=== PATIENT | male | born 1940 | race Caucasian/White ===

== ENCOUNTER → 2017-08-24 | Outpatient (CLI) | payer BC ==
[~2017-08-24] MED LIST: ALL100 PO; AMLO2.5T PO; ATEN50TA8 PO; MULT-506 PO; PRAV20TA PO; VALS40TA2 PO; WARF2TAB8 PO; WARF4TAB8 PO
--- NOTE | 2017-08-24 16:40 | DIAGNOSTIC IMAGING REPORT ---
CHEST 2 VIEWS ROUTINE CLINICAL HISTORY: CHRONIC COUGH COMPARISON STUDY: 02/05/2015 FINDINGS: The cardiac and mediastinal contours are normal. There is no evidence of focal pulmonary consolidation. There is no evidence of failure. No pleural effusions are visualized.[ Increased markings at the left lung base remain similar to the prior study and are likely secondary to a combination of fat pad and atelectasis/scarring. IMPRESSION: Stable left basilar atelectasis/scarring. No acute findings. Electronically signed by: Ray Silver M.D. 08/24/2017 4:39 PM Dictated Date/Time: 08/24/2017 4:38 PM
== END | disposition home or self-care (01) ==
LOC: C.RAD 16:17
PROVIDERS: ATTEND Family Medicine
DX: R05 Cough (principal); R91.8 Other nonspecific abnormal finding of lung field

== ENCOUNTER → 2017-08-24 | Outpatient (CLI) | payer BC ==
--- NOTE | 2017-08-25 13:51 | PULMONARY FUNCTION TEST ---
Spirometry is consistent with a mild obstructive pattern. Repeat study done following bronchodilators showed significant improvement in function with a 15% improvement in forced vital capacity and a 21% improvement in FEV1. 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 Advise clinical correlation.
== END | disposition home or self-care (01) ==
LOC: C.RC 14:17
PROVIDERS: ATTEND Family Medicine
DX: R05 Cough (principal)

== ENCOUNTER → 2018-03-18 | Outpatient (CLI) | payer OTHER ==
--- NOTE | 2018-03-18 13:10 | DIAGNOSTIC IMAGING REPORT ---
ABDOMINAL WALL ULTRASOUND CLINICAL HISTORY: L03.311 abdominal wall cellulitis COMPARISON STUDY: No previous studies for comparison. FINDINGS: At the point of clinical concern, within the right lower quadrant, there is a superficial 13 x 6 x 7 mm complex collection suspicious for an abscess. CT scanning could be obtained in follow-up for further delineation as deemed clinically appropriate. IMPRESSION: 1. Complex 13 x 6 x 7 mm superficial collection within the right lower quadrant, suspicious for an abscess. Electronically signed by: Ray Silver M.D. 03/18/2018 1:09 PM Dictated Date/Time: 03/18/2018 1:06 PM
== END ==
LOC: C.ULTRBC 12:07
PROVIDERS: ATTEND Surgery
DX: L03.311 Cellulitis of abdominal wall (principal)

== ENCOUNTER 2018-03-28 11:51 | Inpatient (IN) | payer OTHER ==
[~2018-03-28] VITALS: Ht 170.2 cm; Wt 113.0 kg
[2018-03-28 12:00] VITALS: O2SAT 97
[2018-03-28 12:06] VITALS: BP 132/82; PULSE 70; TEMP 36.8; BMI 39.0
--- NOTE | 2018-03-28 12:14 | History and Physical ---
History & Physical Date Mar 28, 2018. History of Present Illness The patient is a 77 year old male with complaints of a several week history of RLQ abdominal wall cellulitis. I have been treating him as an out-pt with limited success. US as an out-pt was primarily a cellulitis. he continues to have redness/warmth/discomfort. no drainage Past Medical/Surgical History Medical Problems: (1) Cellulitis, abdominal wall (2) History of prostate cancer (3) Hypertension Nos (4) Mixed Hyperlipidemia (5) Pulmonary emboli (6) Renal insufficiency Surgical Problems: (1) History of wisdom tooth extraction Additional History Hepatic Disease: No Endocrine Disorder: No Kidney Disease: No Hypertension: Yes Heart Disease: No Bleeding Tendencies: on coumadin Infectious Diseases: No Allergies Coded Allergies: No Known Allergies (Unverified , 04/17/13) Home Medications Scheduled Allopurinol (Zyloprim *), 100 MG PO DAILY Amlodipine (Norvasc), 10 MG PO DAILY Atenolol (Tenormin), 50 MG PO DAILY Multivitamin (Multivitamin), 2 TAB PO DAILY Pravastatin (Pravachol ), 40 MG PO DAILY Valsartan (Diovan), 80 MG PO DAILY Warfarin Sod (Jantoven), 6 MG PO WK Warfarin Sod (Jantoven), 4 MG PO 6XWK Physical Examination Skin: warm/dry Eyes: EOMI, sclerae normal Head: atraumatic Neck: supple, trachea midline Respiratory/Chest: no respiratory distress Abdomen / GI: + pertinent finding (+cellulitis on RLQ. mildly tender. +warm to touch. no drainage. no fluctuance. ) Neurologic/Psych: alert, oriented x 3 Diagnosis 1. abdominal wall cellulitis refractory to out-pt treatment Plan of Treatment will admit for IV antibiotics will re-check US to r/o underlying drainable fluid symptom control.
[2018-03-28] MEDS ORDERED: PIPERACILL/TAZOBAC CONSULT ACTIVE PRN (12:15)
[2018-03-28] MEDS ORDERED: ACETAMINOPHEN 500 MG TAB PO PRN (12:15)
[2018-03-28] MEDS ORDERED: PATIENT'S HEIGHT AND/OR WEIGHT NEEDED SCH (12:15)
[2018-03-28] MEDS ORDERED: ONDANSETRON INJ 2 MG/ML 2 ML VIAL IV PRN (12:15)
[2018-03-28] MEDS ORDERED: HYDROCODONE/ACETAMIN 5/325MG TAB PO PRN ×2 (12:30)
[2018-03-28] MEDS ORDERED: PIPERACILL/TAZOBAC IV 4.5 GM in NSS 100 ML IV ONE (12:30)
[2018-03-28 12:58] LABS: BASO % 1.1 %; BASO ABS # 0.13 K/uL (0-0.2); EOS % 2.2 %; EOS ABS # 0.26 K/uL (0-0.5); HEMATOCRIT 31.9 % (42-52); HEMOGLOBIN 10.5 g/dL (14.0-18.0); IG# 0.33 K/uL (0.00-0.02); LYMPH % 16.3 %; LYMPH ABS # 1.96 K/uL (1.2-3.4); MEAN CELL VOLUME 91.7 fL (80-100); MEAN CORPUSCULAR HEMOGLOBIN 30.2 pg (25-34); MEAN CORPUSCULAR HGB CONC 32.9 g/dl (32-36); MEAN PLATELET VOLUME 8.5 fL (7.4-10.4); MONO % 8.2 %; MONO ABS # 0.98 K/uL (0.11-0.59); NEUT % 69.4 %; NEUT ABS # 8.33 K/uL (1.4-6.5); PLATELET COUNT 324 K/uL (130-400); RED CELL DISTRIBUTION WIDTH SD 46.6 fL (36.4-46.3); WHITE BLOOD COUNT 11.99 K/uL (4.8-10.8)
[2018-03-28 13:08] LABS: INR 3.5 (0.9-1.1)
[2018-03-28 13:19] LABS: CALCIUM 8.8 mg/dl (8.5-10.1); CREATININE 1.67 mg/dl (0.60-1.40); POTASSIUM 4.1 mmol/L (3.5-5.1)
--- NOTE | 2018-03-28 13:51 | DIAGNOSTIC IMAGING REPORT ---
ABDOMEN LIMITED (US) HISTORY: 77 years-old Male abdominal wall cellulitis acute swelling of the abdominal wall COMPARISON: Abdominal ultrasound 03/18/2018 TECHNIQUE: Multiple real-time sonographic images of the right lower quadrant subcutaneous tissues were obtained assessing grayscale appearance and color flow FINDINGS: Within the area of concern there is a complex fluid collection measuring 10.9 x 7.8 x 2.9 cm which appears to be multiloculated. Central fluid contains low-level echoes. There is increased through transmission. This has decreased in size from prior study when it measured 13 x 6 x 7 cm. IMPRESSION: Decreased size of the complex subcutaneous fluid collection of the abdominal right lower quadrant suggesting abscess, now measuring up to 10.9 cm. The above report was generated using voice recognition software. It may contain grammatical, syntax or spelling errors. Electronically signed by: Александр George M.D. 03/28/2018 1:50 PM Dictated Date/Time: 03/28/2018 1:48 PM
[2018-03-28 15:05] VITALS: BP 121/60; PULSE 59; TEMP 36.1; O2SAT 94
[2018-03-28] MEDS ORDERED: WARFARIN SOD 4 MG TAB PO SCH (16:00)
--- NOTE | 2018-03-28 17:06 | Anesthesiology Progress Note ---
Anesthesia Progress Note Date of Service Mar 28, 2018. Progress Notes The patient is scheduled for I and D of abdominal wall abscess tomorrow. 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 His INR was 3.5 today. I spoke to Dr. Somers who will order the patient to receive Vitamin K tonight. The patient was consented to MAC sedation with general anesthesia as backup. He was instructed to be NPO after midnight except for sips of water with pills.
[2018-03-28] MEDS ORDERED: PHYTONADIONE INJ 10 MG in SODIUM CHLORIDE 0.9% 50ML 50 ML IV ONE (17:15)
[2018-03-28] MEDS: PIPERACILL/TAZOBAC IV 4.5 GM in DEXTROSE 5% 100ML 100 ML IV SCH (18:49)
[2018-03-28] MEDS ORDERED: NURSING VERBAL MED ORDER ONE (19:00)
[2018-03-28] MEDS: AMLODIPINE BESYLATE 5 MG TAB PO SCH (20:59)
[2018-03-28] MEDS: MULTIVITAMIN TAB PO SCH (20:59)
[2018-03-28] MEDS: VALSARTAN 80 MG TAB PO SCH (20:59)
[2018-03-28] MEDS: ALLOPURINOL 100 MG TAB PO SCH (20:59)
[2018-03-28] MEDS: PRAVASTATIN SOD 20 MG TAB PO SCH (20:59)
[2018-03-28 22:50] VITALS: BP 105/69; PULSE 58; TEMP 36.8; O2SAT 95
[2018-03-29] VITALS (10 sets, daily range): BP systolic 105–158; BP diastolic 54–82; PULSE 51–63; TEMP 36.5–36.9; O2SAT 93–96
[2018-03-29] MEDS: PIPERACILL/TAZOBAC IV 4.5 GM in DEXTROSE 5% 100ML 100 ML IV SCH ×3 (01:25→17:34)
[2018-03-29 06:25] LABS: BASO % 1.1 %; BASO ABS # 0.14 K/uL (0-0.2); EOS % 2.8 %; EOS ABS # 0.34 K/uL (0-0.5); HEMATOCRIT 33.5 % (42-52); HEMOGLOBIN 10.9 g/dL (14.0-18.0); IG# 0.21 K/uL (0.00-0.02); LYMPH % 17.6 %; LYMPH ABS # 2.17 K/uL (1.2-3.4); MEAN CORPUSCULAR HEMOGLOBIN 29.9 pg (25-34); MEAN CORPUSCULAR HGB CONC 32.5 g/dl (32-36); MEAN PLATELET VOLUME 8.6 fL (7.4-10.4); MONO % 8.4 %; MONO ABS # 1.04 K/uL (0.11-0.59); NEUT % 68.4 %; NEUT ABS # 8.44 K/uL (1.4-6.5); PLATELET COUNT 315 K/uL (130-400); RED CELL DISTRIBUTION WIDTH CV 13.9 % (11.5-14.5); RED CELL DISTRIBUTION WIDTH SD 46.7 fL (36.4-46.3); WHITE BLOOD COUNT 12.34 K/uL (4.8-10.8)
[2018-03-29 06:41] LABS: INR 1.4 (0.9-1.1)
[2018-03-29 06:51] LABS: CALCIUM 8.9 mg/dl (8.5-10.1); CREATININE 2.14 mg/dl (0.60-1.40); POTASSIUM 4.2 mmol/L (3.5-5.1)
[2018-03-29] MEDS ORDERED: AMLODIPINE BESYLATE 5 MG TAB PO SCH (09:00)
[2018-03-29] MEDS ORDERED: VALSARTAN 80 MG TAB PO SCH (09:00)
[2018-03-29] MEDS ORDERED: MULTIVITAMIN TAB PO SCH (09:00)
[2018-03-29] MEDS ORDERED: ALLOPURINOL 100 MG TAB PO SCH (09:00)
[2018-03-29] MEDS ORDERED: PRAVASTATIN SOD 20 MG TAB PO SCH ×2 (09:00)
[2018-03-29] MEDS ORDERED: ONDANSETRON INJ 2 MG/ML 2 ML VIAL IV PRN (10:00)
[2018-03-29] MEDS ORDERED: FENTANYL CITRATE INJ 50 MCG/1 ML 2 ML VIAL IV PRN (10:00)
[2018-03-29] MEDS ORDERED: EpHEDrine SULFATE INJ 50 MG/ML AMP IV PRN (10:00)
[2018-03-29] MEDS ORDERED: LABETALOL HCL IV 5 MG/ML 20ML IV PRN (10:00)
[2018-03-29] MEDS ORDERED: HYDROmorphone INJ 2 MG/ML SYR/VIAL IV PRN (10:00)
[2018-03-29] MEDS ORDERED: MEPERIDINE HCL 25 MG/ML CARP IV PRN (10:00)
[2018-03-29] MEDS ORDERED: ATROPINE SULFATE 0.1 MG/ML 5ML SYR IV PRN (10:00)
[2018-03-29] MEDS ORDERED: FENTANYL CITRATE INJ 50 MCG/1 ML 2 ML VIAL ONE ×2 (11:36)
[2018-03-29] MEDS ORDERED: MIDAZOLAM HCL 1 MG/ML 2ML VIAL ONE (11:36)
--- NOTE | 2018-03-29 12:47 | History & Physical Bridge Note ---
H&P Re-Evaluation Bridge Note: I have examined the patient, reviewed the History & Physical and in the interval since the performance of the History & Physical I have noted the following changes of clinical significance: No changes noted
[2018-03-29] MEDS ORDERED: LIDOCAINE HCL 2% 2 ML VIAL (20MG/ML) ONE (13:08)
[2018-03-29] MEDS ORDERED: PROPOFOL IV EMULSION 10 MG/ML 20 ML VIAL ONE (13:08)
[2018-03-29] MEDS ORDERED: ONDANSETRON INJ 2 MG/ML 2 ML VIAL ONE (13:08)
[2018-03-29] MEDS ORDERED: DEXAMETHASONE SOD INJ 4 MG/ML VIAL ONE (13:08)
[2018-03-29] MEDS ORDERED: MoRPHine SULFATE 2 MG/ML CARP IV PRN (13:30)
--- NOTE | 2018-03-29 13:34 | [facility] Operative Report ---
Operative Report Operative Date March 29, 2018. Pre-Operative Diagnosis Abdominal wall abscess Post-Operative Diagnosis Same Procedure(s) Performed Inscion and drainage abdominal wall abscess Surgeon Dr Somers Software Build Engineer Surgeon(s) None Estimated Blood Loss 15ML Specimens Culture #1 abdominal wall abscess for gram stain, aerobic, anaerobic Anesthesia Type General Complication(s) none Description of Procedure After informed consent was obtained the patient was taken the operating room and placed in supine position. After successful placement of laryngeal mask airway the abdomen was sterilely prepped and draped in usual fashion. I made a horizontal incision directly over the indurated skin. I carried this down through the soft tissues electrocautery. We immediately encountered a rather large abscess with purulent fluid. Cultures were taken and sent for Gram stain culture and sensitivity. I finger fractionated the complex tissue and fluid. I used a Yankauer to clean out all the debris. We then thoroughly irrigated the wound and packed with half-inch iodoform packing. A sterile dressing was applied. The patient was awakened extubated and transferred to recovery in stable condition I attest to the content of the Intraoperative Record and any orders documented therein. Any exceptions are noted below.
--- NOTE | 2018-03-29 14:10 | Anesthesiology Progress Note ---
Anesthesia Post Op Note Date & Time March 29, 2018 at 14:10 Vital Signs Pain Intensity: 0 Vital Signs Past 12 Hours Date Time Temp Pulse Resp B/P (MAP) Pulse Ox O2 Delivery O2 Flow Rate FiO2 03/29/18 14:00 51 12 114/68 99 Oxymask 10 03/29/18 13:50 57 115/63 99 Oxymask 10 03/29/18 13:42 36.5 57 117/69 96 Oxymask 03/29/18 11:53 36.7 55 16 158/80 (106) 93 Room Air 03/29/18 09:19 95 Room Air 03/29/18 08:08 36.5 63 18 122/58 (79) 95 Room Air 03/29/18 07:57 Room Air Notes Mental Status: alert / awake / arousable, participated in evaluation Pt Amnestic to Procedure: Yes Nausea / Vomiting: adequately controlled Pain: adequately controlled Airway Patency, RR, SpO2: stable & adequate BP & HR: stable & adequate Hydration State: stable & adequate Anesthetic Complications: no major complications apparent
[2018-03-29] MEDS: MULTIVITAMIN TAB PO SCH (20:47)
[2018-03-29] MEDS: ALLOPURINOL 100 MG TAB PO SCH (20:47)
[2018-03-29] MEDS: AMLODIPINE BESYLATE 5 MG TAB PO SCH (20:48)
[2018-03-29] MEDS: PRAVASTATIN SOD 20 MG TAB PO SCH (20:48)
[2018-03-29] MEDS: VALSARTAN 80 MG TAB PO SCH (20:49)
[2018-03-30] MEDS: PIPERACILL/TAZOBAC IV 4.5 GM in DEXTROSE 5% 100ML 100 ML IV SCH ×2 (02:16→09:48)
[2018-03-30 03:00] VITALS: BP 125/78; PULSE 60; TEMP 36.5; O2SAT 93
[2018-03-30] MEDS ORDERED: AMOX875T PO (07:11)
--- NOTE | 2018-03-30 07:12 | Surgery Progress Note ---
Surgery Progress Note Date of Service March 30, 2018. Subjective Post OP Day: 1 + feeling well "best I've felt in a month"...no complaints. Objective Vital Signs: Date Time Temp Pulse Resp B/P (MAP) Pulse Ox O2 Delivery O2 Flow Rate FiO2 03/30/18 03:00 36.5 60 20 125/78 (94) 93 CPAP 03/29/18 23:40 CPAP 03/29/18 23:20 36.6 63 18 107/57 (74) 96 CPAP 03/29/18 20:12 36.9 63 18 134/75 (94) 94 Room Air 03/29/18 17:30 36.7 60 18 116/62 (80) 95 Room Air 03/29/18 16:40 36.7 58 18 105/54 (71) 94 Room Air 03/29/18 16:00 94 Room Air 03/29/18 15:04 36.7 51 18 134/82 (99) 94 Room Air 03/29/18 14:30 36.7 52 18 117/68 (84) 96 Nasal Cannula 2.0 03/29/18 14:30 Nasal Cannula 2.0 03/29/18 14:20 36.8 53 16 115/63 94 Room Air 03/29/18 14:10 53 16 119/62 94 Room Air 03/29/18 14:00 51 12 114/68 99 Oxymask 10 03/29/18 13:50 57 115/63 99 Oxymask 10 03/29/18 13:42 36.5 57 117/69 96 Oxymask 03/29/18 11:53 36.7 55 16 158/80 (106) 93 Room Air 03/29/18 09:19 95 Room Air 03/29/18 08:08 36.5 63 18 122/58 (79) 95 Room Air 03/29/18 07:57 Room Air General Appearance: no apparent distress Respiratory/Chest: no respiratory distress Abdomen: soft, + pertinent finding (dressing clean/dry) Incision(s): clean, dry Laboratory Results: Results Past 24 Hours Test 03/30/18 04:44 Range/Units Microbiology Results 03/29/18 Gram Stain, Received Pending 03/29/18 Bacterial Culture, Received Pending Assessment & Plan POD #1 doing much better. would like to go home ok for d/c on augmentin. cx's pending. will need soc services to arrange for home nursing for packing changes.
[2018-03-30 07:30] LABS: INR 1.2 (0.9-1.1)
[2018-03-30 07:45] VITALS: BP 158/90; PULSE 54; TEMP 36.4; O2SAT 96
[2018-03-30 09:24] VITALS: O2SAT 96
--- NOTE | 2018-03-30 09:57 | Discharge Instructions ---
Discharge Instructions Date of Service March 30, 2018. Admission Reason for Admission: Abd Wall Cellulitis (Not Open) Discharge Discharge Diagnosis / Problem: Abdominal Wall Cellulitis Discharge Goals Goal(s): Decrease discomfort, Improve function Activity Recommendations Activity Limitations: as noted below Lifting Limitations: no more than 10 pounds Exercise/Sports Limitations: until after follow-up appointment May Resume Sexual Activity: after follow-up appointment Shower/Bathe: no limitations Driving or Machine Use: no limitations . Instructions / Follow-Up Instructions / Follow-Up Please follow-up with Dr. Somesr in the [facility] located at [address] [place] [address] [place], [place] on 04/01/2018 at 10:00AM. If you are unable to make this appointment, please call our office at [phone]. Any questions or concerns, please call the General Surgery Clinic at [phone]. Current Hospital Diet Patient's current hospital diet: Regular Diet Discharge Diet Recommended Diet: Regular Diet Procedures Procedures Performed: Inscion and drainage abdominal wall abscess Pending Studies Studies pending at discharge: no Medical Emergencies . Who to Call and When: Medical Emergencies: If at any time you feel your situation is an emergency, please call 911 immediately. . Non-Emergent Contact Non-Emergency issues call your: Primary Care Provider, Surgeon Call Non-Emergent contact if: temperature is above 101.5, your pain is not controlled, wound has increased drainage, wound has increased redness . "Provider Documentation" section prepared by Eugenie Enriquez. .
[2018-03-30] MEDS ORDERED: ENOXAPARIN 120 MG/0.8 ML SYR SQ SCH (11:00)
[2018-03-30] MEDS ORDERED: WARFARIN SOD 6 MG TAB PO SCH ×2 (11:00→16:00)
[2018-03-30 11:23] VITALS: BP 158/90; PULSE 54; TEMP 36.4; O2SAT 96
[2018-03-30] MEDS ORDERED: ENOXAPARIN 40 MG/0.4 ML SYR SQ STA (11:29)
[2018-03-30] MEDS ORDERED: ENOX40IN SQ (11:39)
--- NOTE | 2018-03-30 12:21 | Medical Consult ---
Consultation Note Date of Service March 30, 2018. Consultation Note Events of past two days noted. Patient followed by anticoagulation clinic and anticoagulation discharge instructions provided: 40 mg Lovenox daily to begin today (administer now; script for 2 additional syringes to be provided by surgical team at d/c). Will give 26% coumadin load during bridge. 8 mg Coumadin today. The patient can take this at home following discharge. If he is not discharged today, I will provide verbal order. 03/31: 40 mg Lovenox (24 hours from in house dose) and 8 mg Coumadin. Sunday 04/01: 40 mg Lovenox and 4 mg Coumadin (regular dose) Monday 04/02: Patient will resume standard anticoagulation dosing schedule: 4 mg Coumadin Wednesday through Wednesday and 6 mg Coumadin on Saturdays (30 mg / week ). Patient has follow up appointment in [facility] clinic on Wednesday @ 2:30. Patient has been instructed to take a probiotic or eat yogurt during the time he is on Augmentin. Patient has been instructed to notify the [facility] clinic if: -he gets diarrhea -his antibiotic changes -he needs to change his appointment -there are questions. Detailed, written instructions provided to patient. Thank you for allowing me to participate in his care.
[2018-03-30 12:53] VITALS: Ht 170.2 cm; Wt 113.0 kg
[2018-04-02] MEDS ORDERED: WARFARIN SOD 6 MG TAB PO SCH (16:00)
--- NOTE | 2018-04-06 14:14 | Discharge Summary ---
Discharge Summary Date of Service April 06, 2018. Admission Date/Reason Mar 28, 2018 at 11:51 Abd Wall Cellulitis (Not Open). Discharge Date/Disposition March 30, 2018 Home with services Diagnosis Principal Diagnosis: Abdominal Wall Cellulitis Procedure(s) Performed Incision and Drainage Abdominal Wall Abscess Consultations Dr[facility] Medication Reconciliation Continued Medications: Allopurinol (Zyloprim *) 100 Mg Tab 100 MG PO DAILY, 0 Refills Amlodipine (Norvasc) 2.5 Mg Tab 10 MG PO DAILY, TAB Atenolol (Tenormin) 50 Mg Tab 50 MG PO DAILY, 0 Refills Multivitamin (Multivitamin) Tab 2 TAB PO DAILY, TAB Pravastatin (Pravachol ) 20 Mg Tab 40 MG PO DAILY, TAB Valsartan (Diovan) 40 Mg Tab 80 MG PO DAILY for 90 Days, #180 TAB 1 Refill Warfarin Sod (Jantoven) 2 Mg Tab 6 MG PO WK, TAB Wednesday only Warfarin Sod (Jantoven) 4 Mg Tab 4 MG PO 6XWK, TAB Admission Physical Exam As per Admitting History & Physical. Hospital Course The patient is a 77 year old male with complaints of a several week history of RLQ abdominal wall cellulitis. Dr. Somers had been treating him as an outpatient with antibiotics with limited success. Patient had outpatient ultrasound which showed primarily a cellulitis. Patient continued to have redness/warmth/discomfort. no drainage. He was direct-admitted to Med/Surg Floor from [facility] for repeat ultrasound, IV antibiotics, and pain control. Patient was taken to OR on Hospital Day #1 for Incision and Drainage of Abdominal Wall abscess after ultrasound revealed a complex fluid collection measuring 10.9 x7.8 x 2.9 cm which appears to be multiloculated. Patient felt much better post-operatively and was discharged on POD #1. Patient was given outpatient antibiotics with a follow-up appointment in General Surgery Clinic in 48 hrs. Patient was set up with home health services for help with packing changes at home. Return precautions provided to patient. Both verbal and written discharge instructions provided. Discharge Instructions Please refer to the electronic Patient Visit Report (Discharge Instructions) for additional information.
== END 2018-03-30 14:28 | disposition home health service (06) | DRG 581 ==
LOC: C.MSW 11:51
PROVIDERS: ADMIT Surgery; ATTEND Surgery
PROC: 0W9F0ZZ Drainage of Abdominal Wall, Open Approach (ICD-10-PCS; principal; 2018-03-29 13:15)
DX: L03.311 Cellulitis of abdominal wall (principal); Z85.46 Personal history of malignant neoplasm of prostate; E78.2 Mixed hyperlipidemia; Z86.711 Personal history of pulmonary embolism; Z79.01 Long term (current) use of anticoagulants